=== PATIENT | female | born 1995 | race Caucasian/White ===

== ENCOUNTER 2023-07-22 09:04 | Outpatient (AMB) | payer OTHER, SELFPAY ==
[2023-07-22 09:10] VITALS: BP 116/64; PULSE 94; RESP 13; TEMP 36.4; O2SAT 99; BMI 31.6
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
== END 2023-07-22 10:04 | disposition home or self-care (01) ==
PROVIDERS: Visit Provider Nurse Practitioner Family
DX: Z00.00 Encounter for general adult medical examination without abnormal findings (principal); I10 Essential (primary) hypertension; E66.9 Obesity, unspecified; Z68.31 Body mass index [BMI] 31.0-31.9, adult
CPT/HCPCS: 99385

== ENCOUNTER 2023-07-22 09:45 | Outpatient (REF) | payer OTHER, SELFPAY ==
[2023-07-22 11:09] LABS: MANUAL DIFF FLAG NO
[2023-07-22 11:22] LABS: Appearance Urine Clear; Color Urine Yellow; Glucose Urine UA Negative (Negative); Leukocyte Esterase Urine Moderate (2+) (Negative); Nitrite Urine Negative (Negative); UMIC TRIGGER UACC YES; Urine Blood Trace (Negative); Urine Ketones Negative (Negative); Urine Protein Negative (Neg-Trace)
[2023-07-22 11:25] LABS: Bacteria Urine None Seen (None Seen); Hyaline Casts Urine 0-2 /LPF (0-2); RBC Urine 0-2 /HPF (0-2); UACC Culture Trigger YES
[2023-07-22 11:30] LABS: Basophils Percent Auto 0.3 % (0-2); Eosinophils Absolute Auto 0.1 X10*3/uL (0.0-0.4); Hemoglobin 14.9 g/dl (12.0-16.0); Imm Gran Abs Auto 0.01 X10*3/uL (0.00-0.03); Imm Gran Pct Auto 0.2 % (0.0-0.4); Lymphocytes Absolute Auto 1.6 X10*3/uL (1.2-4.9); Lymphocytes Percent Auto 24.8 % (20-40); Mean Corpuscular HGB Conc 34.7 g/dl (31.0-35.0); Mean Corpuscular Hemoglobin 32.3 pg (27.0-33.0); Mean Corpuscular Volume 93.3 fL (80.0-98.0); Mean Platelet Volume 9.9 fL (9.4-12.3); Monocytes Absolute Auto 0.3 X10*3/uL (0.1-1.2); Monocytes Percent Auto 5.4 % (2-11); Neutrophils Absolute Auto 4.3 x10*3/uL (2.0-8.3); Neutrophils Percent Auto 68.3 % (45-73); Platelet Count 236 X10*3/uL (160-400); Red Blood Count 4.61 X10*6/uL (4.20-5.50); Red Cell Distribution Width 12.1 % (11.0-16.0); White Blood Count 6.3 X10*3/uL (4.8-10.8)
[2023-07-22 12:00] LABS: Creatinine Urine 134.21 mg/dL; Microalbum/Creatinine Ratio Ur 6.7 ug/mg cr (<30)
[2023-07-22 12:22] LABS: Alanine Aminotransferase 12 U/L (0-31); Albumin Level 4.3 g/dL (3.5-5.0); Alkaline Phosphatase 67 U/L (39-117); Anion Gap 11 (12-20); Aspartate Amino Transferase 16 U/L (5-31); Bilirubin Total 0.5 mg/dL (0.0-1.0); Blood Urea Nitrogen 12 mg/dL (9-16); Calcium 9.2 mg/dL (8.4-10.2); Carbon Dioxide 28 mmol/L (22-29); Chloride 104 mmol/L (96-108); Cholesterol 158 mg/dL (<200); Estimated Glomerular Filt Rate > 60; Glucose Fasting 94 mg/dL (60-99); HDL Cholesterol 59 mg/dL (>40); LDL Cholesterol Calculated 84 mg/dL (<100); Potassium 3.9 mmol/L (3.3-5.1); Sodium 139 mmol/L (135-145); Total Protein 7.7 g/dL (6.5-8.0); Triglycerides 76 mg/dL (<150)
[2023-07-30 18:03] LABS: Aldosterone/Renin Ratio 2.8 Ratio (0.9-28.9); Plasma Renin Activity 2.46 ng/mL/h (0.25-5.82)
== END 2023-07-22 09:46 | disposition home or self-care (01) ==
LOC: HO.WFDLDS 09:45
PROVIDERS: Visit Provider Nurse Practitioner Family
DX: Z00.00 Encounter for general adult medical examination without abnormal findings (principal); I10 Essential (primary) hypertension
CPT/HCPCS: 36415; 80053; 80061; 81001; 82043; 82088; 82570; 84443; 85025; 87086; 87147

== ENCOUNTER 2023-08-06 09:23 | Outpatient (REF) | payer OTHER, SELFPAY ==
--- NOTE | ~2023-08-06 | US_ITS ---
EXAMINATION: ULTRASOUND RENAL WITH DOPPLER CLINICAL INFORMATION: Essential (primary) hypertension. COMPARISON: None. TECHNIQUE: Real-time grayscale, color Doppler, and duplex Doppler evaluation of the kidneys and renal vasculature was performed. FINDINGS: RENAL MEASUREMENTS: Right: 10.0 x 3.8 x 4.7 cm (Sag x AP x TV) Left: 9.5 x 4.3 x 4.6 cm (Sag x AP x TV) The renal parenchyma appears normal. No hydronephrosis or nephrolithiasis. DOPPLER INTERROGATION: Aorta: 84.7 cm/sec Right Main Renal Artery: Proximal: 130.0 cm/sec Mid: 89.1 cm/sec Distal: 100.0 cm/sec Left Main Renal Artery: Proximal: 59.1 cm/sec Mid: 63.5 cm/sec Distal: 59.6 cm/sec Renal-Aortic Ratio (RAR): Right: 1.5 Left: 0.7 Bilateral upper pole, interpolar and lower pole segmental arteriolar resistive indices are within normal limits. Bilateral upper pole, interpolar and lower pole segmental arteriolar pulse doppler waveforms are unremarkable, with uniformly rapid upstrokes and no parvus et tardus configuration. US/US renal doppler IMPRESSION: Unremarkable examination, without hemodynamically significant renal artery stenosis noted bilaterally.
--- NOTE | ~2023-08-06 | US_ITS ---
EXAMINATION: ULTRASOUND RENAL WITH DOPPLER CLINICAL INFORMATION: Essential (primary) hypertension. COMPARISON: None. TECHNIQUE: Real-time grayscale, color Doppler, and duplex Doppler evaluation of the kidneys and renal vasculature was performed. FINDINGS: RENAL MEASUREMENTS: Right: 10.0 x 3.8 x 4.7 cm (Sag x AP x TV) Left: 9.5 x 4.3 x 4.6 cm (Sag x AP x TV) The renal parenchyma appears normal. No hydronephrosis or nephrolithiasis. DOPPLER INTERROGATION: Aorta: 84.7 cm/sec Right Main Renal Artery: Proximal: 130.0 cm/sec Mid: 89.1 cm/sec Distal: 100.0 cm/sec Left Main Renal Artery: Proximal: 59.1 cm/sec Mid: 63.5 cm/sec Distal: 59.6 cm/sec Renal-Aortic Ratio (RAR): Right: 1.5 Left: 0.7 Bilateral upper pole, interpolar and lower pole segmental arteriolar resistive indices are within normal limits. Bilateral upper pole, interpolar and lower pole segmental arteriolar pulse doppler waveforms are unremarkable, with uniformly rapid upstrokes and no parvus et tardus configuration. US/US renal BI IMPRESSION: Unremarkable examination, without hemodynamically significant renal artery stenosis noted bilaterally.
== END 2023-08-06 09:24 | disposition home or self-care (01) ==
LOC: HO.US 09:23
PROVIDERS: PCP Nurse Practitioner Family; Visit Provider Nurse Practitioner Family
DX: I10 Essential (primary) hypertension (principal)
CPT/HCPCS: 76775; 93975

== ENCOUNTER → 2023-08-29 16:34 | Outpatient (AMB) | payer OTHER, SELFPAY ==
--- NOTE | 2023-08-29 16:31 | MHC.PC.OV ---
Intake Visit Reasons: 2-3 wks telehealth labs Systems Test Analyst Required: No Allergies Penicillins Adverse Reaction (Mild, Verified 08/29/23 16:32) Hives Tobacco use date assessed: 07/22/23 Dental Screening Dental Screen Date: 07/22/23 HPI 2-3 wks telehealth labs HPI Details 28 y/o female presents to f/u CPE-labs via telemedicine. Labs drawn 07/22/23. Reviewed labs with pt. Triglycerides 76. TC 158. LDL 84. HDL 59. Trace urine blood. PFSH Medical History (Updated 07/22/23 @ 09:47 by Stanley Borges CNP) High blood pressure Surgical History (Updated 07/22/23 @ 09:25 by VICK Walsh) No pertinent past surgical history Family History Mother Asthma High cholesterol Father High blood pressure Diabetes Social History Housing: House Patient Tobacco Use Status: Never used Tobacco e-Cigarette/Vaping Use: Never Used service: No Current occupational status: employed Current occupation: [employer] Cognitive needs: No Hearing needs: No Vision needs: Yes Questionnaire Thrive Questionnaire Date Thrive assessed: 07/22/23 BERTHA-7 AMB Questionnaire BERTHA-7 Date BERTHA - 7 assessed: 07/22/23 Source: Developed by Drs. Emmanuel Segura, Coral Carlisle, Ryan Coates and colleagues, with an educational matt from [email or web address]. Review of Systems Const Denies chills, Denies fatigue, Denies fever(s), Denies headache(s) and Denies weakness ENT Denies dizziness and Denies headache(s) Card Denies dyspnea Resp Denies cough, Denies dyspnea, Denies wheezing and Denies other (shortness of breath) Musc Denies numbness and Denies tingling Neuro Denies dizziness, Denies headache(s), Denies numbness, Denies tingling and Denies weakness Psych Denies anxiety and Denies depression Endo Denies fatigue Aller/Immun Denies wheezing Physical exam (Primary Care) Tobacco/Smoking Status: Tobacco use Status Tobacco use date assessed 07/22/23 08/29/23 16:33 Patient Tobacco Use Status Never used Tobacco 08/29/23 16:33 e-Cigarette/Vaping Use Never Used 08/29/23 16:33 Thrive Assessment: Date of Thrive Assessment Date Thrive assessed 07/22/23 08/29/23 16:33 Telehealth Telehealth Telehealth Platform: Telephone Location of provider rendering services: practice address Location of patient: address on file Patient Identification confirmed using: Name, : Yes Telehealth method: voice only Patient verbally consented to treatment: Yes Patient verbally consented to billing insurance company: Yes Patient informed of any privacy concerns related to visit: Yes Minutes spent on Phone/Video with Pt.: 12 Assessment and Plan Assessment & Plan (1) High blood pressure: Code(s): I10 - Essential (primary) hypertension Plan: Patient's?blood?pressure?at?recent?appointment?was?116/64?on?lisinopril?hydrochlorothiazide She?had?noted?a?history?of?narrowed?left?renal?artery?seen?on?imaging. However,?she?does?not?have?resistant?hypertension?requiring?more?than?3?medications.??Also?renal?function?on?these?medications?looks?normal. Finally,?renin?angiotensin?and?ratios?are?normal. Doubt?that?renal?artery?stenosis?is?the?cause?of?her?hypertension.??Likely?essential?hypertension. However,?patient?does?notes?weight?gain?and?some?facial?hair.??Possible?PCOS?contribution. She?can?discuss?with?her?PCP,?a?referral?to?doughnut machine operator helper?for?workup?to?rule?out?PCOS Regarding?blood?pressure,?I?advised?she?continue?her?medication,?work?on?weight?loss?and?exercise. Follow-up?with?PCP?in?3?months Plan The?remainder?of?her?labs?were?okay Coding Level of Care Code Tele Est Pt Level 2 (76675) Diagnoses High blood pressure I10
== END ==
LOC: HO.HMGFM 16:34
PROVIDERS: PCP Nurse Practitioner Family; Visit Provider Family Medicine
DX: I10 Essential (primary) hypertension (principal)
CPT/HCPCS: 99212